=== PATIENT | female | born 1985 | race Caucasian/White ===

== ENCOUNTER 2017-03-07 11:10 | Outpatient (CLI) | payer OTHER ==
[~2017-03-07 11:10] MED LIST: COLACE100 MG PO; MOTRIN800 MG PO; OXYCODONE-ACET1 EACH PO; PRENATAL TABLE1 EAC3 PO
[2017-03-07 11:28] VITALS: BP 113/65
== END 2017-03-07 14:05 | disposition home or self-care (01) ==
LOC: LDRP-OP 11:10 → 2WEST 11:12 → LDRP-OP 05-31 07:10
DX: Z03.79 Encounter for other suspected maternal and fetal conditions ruled out (principal); Z3A.32 32 weeks gestation of pregnancy
CPT/HCPCS: 59025; G0378

== ENCOUNTER 2017-05-03 18:03 | Inpatient (IN) | payer BC ==
[2017-05-03] VITALS (17 sets, daily range): BP systolic 109–128; BP diastolic 59–82
[~2017-05-03] VITALS: Ht 154.9 cm; Wt 71.0 kg
[2017-05-03 19:41] LABS: BASOPHIL (%) 0.2 % (0-1); EOSINOPHIL (%) 0.7 % (0-5); EOSINOPHIL COUNT 0.1 K/uL (0-0.3); HEMATOCRIT 43.4 % (36.0-46.0); HEMOGLOBIN 14.8 G/DL (11.9-15.5); IMMATURE GRANULOCYTE (%) 0.7 % (0.0-0.7); LYMPHOCYTE (%) 11.1 % (15-42); LYMPHOCYTE COUNT 1.5 K/uL (1.0-2.8); MCH 27.9 PG (29.0-34.0); MCHC 34.1 G/DL (30.0-36.0); MCV 81.9 FL (83-99); MONOCYTE (%) 7.2 % (3-12); NEUTROPHIL (%) 80.1 % (45-76); NEUTROPHIL COUNT 10.9 K/uL (1.8-6.4); PLATELET COUNT 127 K/uL (156-360); RBC DIS.WIDTH-CV 13.4 % (11.8-14.6); RBC DIS.WIDTH-SD 39.5 % (39-53); WHITE BLOOD COUNT 13.6 K/uL (4.1-10.2)
[2017-05-04] VITALS (13 sets, daily range): BP systolic 102–131; BP diastolic 55–71
[2017-05-04] MEDS ORDERED: IBUPROFEN800 MG PO (01:49)
== END 2017-05-05 12:47 | disposition home or self-care (01) | DRG 775 ==
LOC: LDRP-OP 18:03 → 2WEST 18:04 → LDRP-OP 05-31 18:33
PROVIDERS: Advanced Practice Midwife
PROC: 00HU33Z Insertion of Infusion Device into Spinal Canal, Percutaneous Approach (ICD-10-PCS; principal; 2017-05-03)
PROC: 3E0R3BZ Introduction of Anesthetic Agent into Spinal Canal, Percutaneous Approach (ICD-10-PCS; principal; 2017-05-03)
PROC: 10907ZC Drainage of Amniotic Fluid, Therapeutic from Products of Conception, Via Natural or Artificial Opening (ICD-10-PCS; principal; 2017-05-03)
PROC: 10E0XZZ Delivery of Products of Conception, External Approach (ICD-10-PCS; 2017-05-04)
PROC: 0HQ9XZZ Repair Perineum Skin, External Approach (ICD-10-PCS; 2017-05-04)
DX: O70.0 First degree perineal laceration during delivery (principal); O69.1XX0 Labor and delivery complicated by cord around neck, with compression, not applicable or unspecified; O69.2XX0 Labor and delivery complicated by other cord entanglement, with compression, not applicable or unspecified; O99.62 Diseases of the digestive system complicating childbirth; K21.9 Gastro-esophageal reflux disease without esophagitis; Z3A.40 40 weeks gestation of pregnancy; Z37.0 Single live birth
CPT/HCPCS: 85025; C1755; G0378; J3010; J7120